=== PATIENT | female | born 1965 | race Caucasian/White ===

== ENCOUNTER → 2019-01-04 | Outpatient (CLI) | payer OTHER ==
[2019-01-04 13:07] LABS: HCT 44.9 % (34.0-46.0); HGB 14.2 gm/dL (11.4-16.0); Hypochromasia Moderate; MCHC 31.5 g/dL (31.0-37.0); MCV 98.2 fL (80.0-100.0); Mean Platelet Volume 6.1; Platelet Count 314 k/uL (150-450); RBC 4.57 m/uL (3.80-5.40); RDW 14.6 % (11.5-15.5); WBC 7.8 k/uL (3.8-10.6)
[2019-01-04 21:00] LABS: Anion Gap 5.8 mmol/L (4.00-12.00); Carbon Dioxide 27.2 mmol/L (21.6-31.8); Potassium 4.4 mmol/L (3.5-5.5)
== END | disposition home or self-care (01) ==
LOC: LABWHC1 12:43
PROVIDERS: ATTEND Internal Medicine Interventional Cardiology
DX: Z01.812 Encounter for preprocedural laboratory examination (principal); I11.0 Hypertensive heart disease with heart failure; I50.22 Chronic systolic (congestive) heart failure
CPT/HCPCS: 36415; 80051; 82565; 84520; 85027

== ENCOUNTER 2019-01-09 11:11 | Day surgery (SDC) | payer OTHER ==
[2019-01-04 11:16] VITALS: BMI 19.5
[~2019-01-09 11:11] MED LIST: ALPRAZolam 0.25 MG TAB PO PRN; ALPRAZolam 0.5 MG TAB PO PRN; ASPIRIN 325 MG TAB PO STA; ATORVASTATIN 80 MG TAB PO STA; NITROGLYCERIN SL TABS 0.4 MG TAB SUBLINGUAL PRN; SODIUM CHLORIDE 0.9% 1,000 ML in EMPTY BAG 1 BAG IV ONE
[2019-01-09 11:33] VITALS: TEMP 98.2
[2019-01-09] MEDS ORDERED: SODIUM CHLORIDE 0.9% 1,000 ML IV ONE (11:35)
[2019-01-09] MEDS ORDERED: LIDOCAINE 1% INJ 10MG/ML (20 ML MDV) ONE (11:51)
[2019-01-09] MEDS ORDERED: fentaNYL (PF) 50 MCG/ML 2 ML AMP ONE (11:51)
[2019-01-09] MEDS ORDERED: VERAPAMIL 2.5 MG/ML 2 ML AMP ONE (11:51)
[2019-01-09] MEDS ORDERED: HEPARIN SODIUM 1,000 UN/ML (10ML VL) ONE (11:52)
[2019-01-09] MEDS ORDERED: MIDAZOLAM 2 MG/2 ML VIAL IV ONE (12:05)
[2019-01-09] MEDS ORDERED: LIDOCAINE 1% INJ 10MG/ML (20 ML MDV) SQ ONE (12:06)
[2019-01-09] MEDS ORDERED: VERAPAMIL SYRINGE (5 MG/10 ML) INTRAARTER ONE (12:09)
[2019-01-09] MEDS ORDERED: HEPARIN SODIUM 1,000 UN/ML (10ML VL) IV ONE (12:10)
[2019-01-09] MEDS ORDERED: IOPAMIDOL-370 100ML BTL INJ ONE (12:17)
[2019-01-09] MEDS ORDERED: RX INFO: IV CONTRAST WAS GIVEN 1 EACH MISC MISCELLANE PRN (12:25)
[2019-01-09] MEDS ORDERED: SODIUM CHLORIDE 0.9% 1,000 ML IV SCH (12:30)
--- NOTE | 2019-01-09 12:53 | CC ---
CARDIAC CATHETERIZATION REPORT DATE OF SERVICE: January 09, 2019 PERFORMING PHYSICIAN: Kevin Saldaña MD, patient accounts clerk. PROCEDURE PERFORMED: 1. Selective right and left coronary angiogram. 2. Left heart catheterization. INDICATION: This is a 53-year-old female patient who was diagnosed recently with severe cardiomyopathy with an ejection fraction of 30%. The heart catheterization is to rule out severe underlying coronary artery disease. APPROACH: Right radial artery. COMPLICATION: None. LEVEL OF SEDATION: Moderate with sedation length of 12 minutes. PROCEDURE DESCRIPTION: After obtaining an informed consent, the patient was brought to the cardiac wharf laborer. The right radial artery was cannulated using micropuncture technique, the micropuncture wire passed easily then I placed a 5-Croatian sheath in the right radial artery. I did after that give the patient 2 mg of verapamil IA and 6000 units of heparin IV. Selective right and left coronary angiogram was performed using JR4 and JL3.5 catheters. Left heart catheterization was performed using the JR4 catheter which flipped into the LV then I did pullback across aortic valve. The procedure was completed without any complication. SELECTIVE CORONARY ANGIOGRAM: 1. The right coronary artery is a large caliber vessel and it is a dominant vessel. The RCA is angiographically normal. Distally it bifurcates into PDA and PLV branches both appeared to be angiographically normal. 2. The left main is angiographically normal. It bifurcates into left circumflex, ramus intermedius, and left anterior descending artery. 3. The left circumflex is a large caliber vessel. It is a nondominant vessel and appeared to be angiographically normal. 4. The ramus intermedius is a large caliber vessel. In the midportion, it bifurcates into 2 branches and they appeared to be angiographically normal. The ramus intermedius overall is angiographically normal. 5. The LAD: The proximal LAD appeared to be angiographically normal. The mid LAD is normal and gives rise into a large diagonal branch which bifurcates into 2 branches they appeared to be angiographically normal and the LAD distally appeared to be angiographically normal and gives rise into second diagonal branch which seems to be normal as well. CONCLUSION: 1. Normal coronary angiogram. 2. Normal left ventricular end-diastolic pressure. POSTPROCEDURE MANAGEMENT: 1. Medical treatment. 2. Follow up with the patient. MMODL / IJN: [id number] /
--- NOTE | 2019-01-09 12:53 | LTR ---
January 09, 2019 Re: Brenda Vázquezy Dear Dr. De La Cruz: Ms. Brenda Rodríguez underwent a heart catheterization today and that revealed normal coronaries. I want to thank you for allowing me to participate in her care and please do not hesitate to call if you have any question or concern. Sincerely, MD BENSON De La Paz / SANTY: [id number] /
[2019-01-09 18:41] VITALS: BP 110/70; PULSE 74; RESP 18
== END 2019-01-09 17:55 | disposition home or self-care (01) ==
LOC: CATHCVL 11:11
PROVIDERS: ATTEND Internal Medicine Interventional Cardiology
DX: I42.9 Cardiomyopathy, unspecified (principal); I10 Essential (primary) hypertension; F17.200 Nicotine dependence, unspecified, uncomplicated; Z79.899 Other long term (current) drug therapy
CPT/HCPCS: 93458; C1769; C1894; J2250; J2001; J1644; Q9967

== ENCOUNTER → 2019-04-24 | Outpatient (CLI) | payer OTHER ==
--- NOTE | 2019-04-24 15:27 | XR ---
EXAMINATION TYPE: XR lumbosacral spine min 4V DATE OF EXAM: 04/24/2019 CLINICAL HISTORY: Chronic low back pain with no known injury TECHNIQUE: Frontal, lateral, and oblique images of the lumbar spine are obtained. COMPARISON: None FINDINGS: There is a rotatory levoscoliosis of the lumbar spine with postsurgical change of L5-S1. T here are 5 lumbar type vertebral bodies identified. Lumbar spine vertebral body heights are maintain ed. There is minimal retrolisthesis of L2 on L3 and L1 on L2. Multilevel degenerative disc disease is seen as intervertebral disc space narrowing, particularly at L2-L3. Small anterior osteophytes and m ultilevel facet arthropathy are also seen. Vertebral body heights and disk space heights are within n ormal limits. The oblique images do not demonstrate visible pars interarticularis defect. No overly ing dilated IMPRESSION: 1. No acute fracture is seen in the lumbar spine. 2. Rotatory levoscoliosis of the lumbar spine. 3. Multilevel malalignment is likely on a degenerative basis with multilevel mild degenerative change s of the lumbar spine.
== END | disposition home or self-care (01) ==
LOC: RADXRMAIN 14:09
PROVIDERS: ATTEND Family Medicine
DX: M51.36 Other intervertebral disc degeneration, lumbar region (principal); M41.86 Other forms of scoliosis, lumbar region
CPT/HCPCS: 72110

== ENCOUNTER 2023-09-15 23:16 | Emergency (ER) | payer OTHER ==
--- NOTE | 2023-09-15 23:32 | ED ---
Abdominal Pain HPI - General Source: patient, EMS Mode of arrival: EMS Limitations: no limitations <Samuel Hale - Last Filed: 09/15/23 23:33> <Vahid Bernstein - Last Filed: 09/16/23 07:21> <Grant Bucio - Last Filed: 09/16/23 09:45> - General Chief Complaint: Abdominal Pain Stated Complaint: RT flank pain Time Seen by Provider: 09/15/23 23:32 - History of Present Illness Initial Comments: 58-year-old female presents to the ED with a chief complaint of flank pain. Patient states for the past day has had pain in her right flank radiating to her lower abdomen. Patient notes associated urinary frequency however denies dysuria or hematuria. (Samuel Hale) Dictation was produced using uchoose dictation software. please excuse any grammatical, word or spelling errors. Chief Complaint: 58-year-old male presents with right-sided flank pain History of Present Illness: Patient's 58-year-old female she initially presented to [facility] emergency department. She had workup performed however due to their CT machine being down she was transferred to our facility for CT imaging. She had normal blood work normal vital signs. Patient states she's been having 24 hours of right-sided back and flank pain. States that her pain is worse when she stands. Denies any blood or changes in her urine appearance. She is pain is constant and does not have a colicky nature. No history of kidney stones. The ROS documented in this emergency department record has been reviewed and confirmed by me. Those systems with pertinent positive or negative responses have been documented in the HPI. All other systems are other negative and/or noncontributory. (Vahid Bernstein) - Related Data Home Medications Medication Instructions Recorded Confirmed Gabapentin [Neurontin] 300 mg PO BID 01/04/19 01/09/19 Metoprolol Tartrate [Lopressor] 25 mg PO BID 01/04/19 01/09/19 Omeprazole [PriLOSEC] 20 mg PO DAILY 01/04/19 01/09/19 Spironolactone [Aldactone] 25 mg PO DAILY 01/04/19 01/09/19 lisinopriL [Zestril] 5 mg PO DAILY 01/04/19 01/09/19 Aspirin 325 mg PO ONCE 01/09/19 01/09/19 Allergies Allergy/AdvReac Type Severity Reaction Status Date / Time No Known Allergies Allergy Verified 09/15/23 23:25 Review of Systems ROS Other: All systems not noted in ROS Statement are negative. <Samuel Hale - Last Filed: 09/15/23 23:33> ROS Other: All systems not noted in ROS Statement are negative. <Vahid Bernstein - Last Filed: 09/16/23 07:21> ROS Other: All systems not noted in ROS Statement are negative. <Grant Bucio - Last Filed: 09/16/23 09:45> ROS Statement: Those systems with pertinent positive or pertinent negative responses have been documented in the HPI. Past Medical History Past Medical History: Asthma, Heart Failure, COPD, Hypertension Additional Past Medical History / Comment(s): Left bundle branch block pattern. Nonischemic cardiomyopathy. Normal cardiac cath, Arthritis History of Any Multi-Drug Resistant Organisms: None Reported Past Surgical History: Back Surgery, Heart Catheterization, Orthopedic Surgery, Tubal Ligation Additional Past Surgical History / Comment(s): right knee surgery x2 and right shoulder surgery. Past Anesthesia/Blood Transfusion Reactions: No Reported Reaction Past Psychological History: Anxiety, Bipolar, Depression Smoking Status: Current every day smoker Past Alcohol Use History: None Reported Past Drug Use History: Cocaine, Marijuana - Past Family History Mother Family Medical History: Cancer, Dementia Additional Family Medical History / Comment(s): Mother at age 70. <Samuel Hale - Last Filed: 09/15/23 23:33> General Exam Limitations: no limitations <Samuel Hale - Last Filed: 09/15/23 23:33> <Vahid Bernstein - Last Filed: 09/16/23 07:21> - General Exam Comments Initial Comments: Visual Physical Exam Vital signs reviewed General: Well-appearing, nontoxic, no acute distress. Head: Normocephalic, atraumatic Eyes: PERRLA, EOMI ENT: Airway patent Chest: Nonlabored breathing Skin: No visual rash, normal skin tone Neuro: Alert and oriented 3 Musculoskeletal: No gross abnormalities (Samuel Hale) PHYSICAL EXAM: General Impression: Alert and oriented x3, mild distress secondary to pain HEENT: Normocephalic atraumatic, extra-ocular movements intact, pupils equal and reactive to light bilaterally, mucous membranes moist. Cardiovascular: Heart regular rate and rhythm Chest: Able to complete full sentences, no retractions, no tachypnea Abdomen: abdomen soft, non-tender, non-distended, no organomegaly Musculoskeletal: Pulses present and equal in all extremities, no peripheral edema Motor: no focal deficits noted Neurological: CN II-XII grossly intact, no focal motor or sensory deficits noted Skin: Intact with no visualized rashes Psych: Normal affect and mood (Vahid Bernstein) Course Vital Signs 09/15/23 09/16/23 09/16/23 23:21 01:50 06:00 Temperature 97.8 F Pulse Rate 86 81 78 Respiratory 18 16 16 Rate Blood Pressure 167/110 163/112 153/97 O2 Sat by Pulse 96 95 95 Oximetry Medical Decision Making <Samuel Hale - Last Filed: 09/15/23 23:33> - Lab Data Result diagrams: 09/15/23 23:44 09/15/23 23:44 <Vahid Bernstein - Last Filed: 09/16/23 07:21> - Lab Data Result diagrams: 09/15/23 23:44 09/15/23 23:44 <Grant Bucio - Last Filed: 09/16/23 09:45> - Medical Decision Making Quicknote portion performed. Signed Samuel Hale PA-C (Samuel Hale) Was pt. sent in by a medical professional or institution (FRAN Patel, ROLLING MACHINE OPERATOR, urgent care, hospital, or long-term...) When possible be specific @ -No Did you speak to anyone other than the patient for history (EMS, parent, family, police, friend...)? What history was obtained from this source @ -No Did you review nursing and triage notes (agree or disagree)? Why? @ -I reviewed and agree with nursing and triage notes Were old charts reviewed (outside hosp., previous admission, EMS record, old EKG, old radiological studies, urgent care reports/EKG's, long-term records)? Report findings @ -No old charts were reviewed Differential Diagnosis (chest pain, altered mental status, abdominal pain women, abdominal pain men, vaginal bleeding, musculoskeletal, weakness, fever, dyspnea, syncope, headache, dizziness, GI bleed, back pain, seizure, CVA, palpatations, mental health)? @ -Differential Abdominal Pain Women: Appendicitis, Cholecystitis, diverticulosis, ischemic bowel, pancreatitis, hepatitis, UTI, gastroenteritis, AAA, incarcerated hernia, bowel obstruction, constipation, inflammatory bowel, hepatitis, peptic ulcer disease, splenic infarction, perforated viscus, vulvitis, ovarian torsion, PID, kidney stone, placenta abruption, this is not meant to be an all-inclusive list EKG interpreted by me (3pts min.). @ -None done X-rays interpreted by me (1pt min.). @ -None done CT interpreted by me (1pt min.). @ - U/S interpreted by me (1pt. min.). @ -None done What testing was considered but not performed or refused? (CT, X-rays, U/S, labs)? Why? @ -None What meds were considered but not given or refused? Why? @ -None Did you discuss the management of the patient with other professionals (professionals i.e. , PA, ROLLING MACHINE OPERATOR, lab, RT, psych nurse, nephrology social worker, boat and plant utility supervisor, teacher, district resource officer, registered nurse hh case manager)? Give summary @ -No Was smoking cessation discussed for >3mins.? @ -No Was critical care preformed (if so, how long)? @ -No Were there social determinants of health that impacted care today? How? (Homelessness, low income, unemployed, alcoholism, drug addiction, transportation, low edu. Level, literacy, decrease access to med. care, usp, rehab)? @ -No Was there de-escalation of care discussed even if they declined (Discuss DNR or withdrawal of care, Hospice)? DNR status @ -No What co-morbidities impacted this encounter? (DM, HTN, Smoking, COPD, CAD, Ca ncer, CVA, ARF, Chemo, Hep., AIDS, mental health diagnosis, sleep apnea, morbid obesity)? @ -None Was patient admitted / discharged? Hospital course, mention meds given and route, prescriptions, significant lab abnormalities, going to OR and other pertinent info. @ -58-year-old female presents emergency by with right flank pain and abdominal pain. Vital signs upon arrival are within acceptable limits. Labs unremarkable. Pending CT. Patient Signed out to Dr. Bucio for follow-up of pending CT imaging. Undiagnosed new problem with uncertain prognosis? @ -No Drug Therapy requiring intensive monitoring for toxicity (Heparin, Nitro, Insulin, Cardizem)? @ -No Were any procedures done? @ -No Diagnosis/symptom? Acute, or Chronic, or Acute on Chronic? Uncomplicated (without systemic symptoms) or Complicated (systemic symptoms)? @ -Right-sided flank pain (Vahid Bernstein) Patient was signed out to me pending results of CT imaging. CT abdomen and pelvis as interpreted by myself was negative for any obvious process. Briefly, patient is transferred here for CT imaging of the abdomen over concern for right flank pain and abdominal pain of unknown etiology. Patient's labs are unremarkable. Was awaiting CT results. When I went to go update the patient, she was unable to be found. Patient left AGAINST MEDICAL ADVICE. We attempt to contact the patient multiple times and family but were unsuccessful. We believe she may have left with an IV in her arm. We'll continue to try to contact the patient. I never evaluated the patient and she had eloped prior to me seeing her. If necessary, we will contact police to ensure IV is removed. After voicemail left stating that police will need to come evaluate for the well-being of the patient has wheezes have not heard from her, the patient did return our phone call. States that she removed the IV upon leaving the hospital. She states her pain is improved and discussed sick of waiting for the results. She spoke with our charge nurse, Obie who informed her of the CAT scan results. She expressed understanding. Diagnosis/symptom? @ -Abdominal pain of unknown etiology, left AMA/left without completing treatment Acute, or Chronic, or Acute on Chronic? @ -Acute Uncomplicated (without systemic symptoms) or Complicated (systemic symptoms)? @ -Uncomplicated Side effects of treatment? @ -none Exacerbation, Progression, or Severe Exacerbation] @ -no Poses a threat to life or bodily function? @ -Unlikely. (Grant Bucio) - Lab Data Lab Results 09/15/23 09/15/23 09/15/23 Range/Units 23:44 23:44 23:44 WBC 8.0 (3.8-10.6) k/uL RBC 4.12 (3.80-5.40) m/uL Hgb 12.9 (11.4-16.0) gm/dL Hct 38.3 (34.0-46.0) % MCV 92.8 (80.0-100.0) fL MCH 31.2 (25.0-35.0) pg MCHC 33.6 (31.0-37.0) g/dL RDW 15.1 (11.5-15.5) % Plt Count 268 (150-450) k/uL MPV 6.7 Neutrophils % 54 % Lymphocytes % 36 % Monocytes % 6 % Eosinophils % 2 % Basophils % 1 % Neutrophils # 4.3 (1.3-7.7) k/uL Lymphocytes # 2.9 (1.0-4.8) k/uL Monocytes # 0.5 (0-1.0) k/uL Eosinophils # 0.1 (0-0.7) k/uL Basophils # 0.1 (0-0.2) k/uL Sodium 139 (137-145) mmol/L Potassium 4.2 (3.5-5.1) mmol/L Chloride 106 (98-107) mmol/L Carbon Dioxide 24 (22-30) mmol/L Anion Gap 9 mmol/L BUN 12 (7-17) mg/dL Creatinine 0.71 (0.52-1.04) mg/dL Est GFR (CKD-EPI)AfAm >90 (>60 ml/min/1.73 sqM) Est GFR (CKD-EPI)NonAf >90 (>60 ml/min/1.73 sqM) Glucose 100 H (74-99) mg/dL Calcium 9.2 (8.4-10.2) mg/dL Total Bilirubin 0.3 (0.2-1.3) mg/dL AST 53 H (14-36) U/L ALT 27 (4-34) U/L Alkaline Phosphatase 90 (38-126) U/L Total Protein 7.0 (6.3-8.2) g/dL Albumin 3.8 (3.5-5.0) g/dL Amylase 75 (30-110) U/L Lipase 91 (23-300) U/L Urine Color Yellow Urine Appearance Cloudy H (Clear) Urine pH 5.5 (5.0-8.0) Ur Specific [place] 1.027 (1.001-1.035) Urine Protein Trace H (Negative) Urine Glucose (UA) Negative (Negative) Urine Ketones Negative (Negative) Urine Blood Negative (Negative) Urine Nitrite Negative (Negative) Urine Bilirubin Negative (Negative) Urine Urobilinogen 2.0 (<2.0) mg/dL Ur Leukocyte Esterase Small H (Negative) Urine RBC 1 (0-5) /hpf Urine WBC 1 (0-5) /hpf Ur Squamous Epith Cells 17 H (0-4) /hpf Hyaline Casts 43 H (0-2) /lpf Urine Mucus Few H (None) /hpf Disposition <Samuel Hale - Last Filed: 09/15/23 23:33> <Vahid Bernstein - Last Filed: 09/16/23 07:21> Time of Disposition: 08:00 <Grant Bucio - Last Filed: 09/16/23 09:45> Clinical Impression: Abdominal pain of unknown etiology Disposition: LEFT AGAINST MEDICAL ADVICE Condition: Undetermined Referrals: None,Stated [Primary Care Provider] - 1-2 days
[2023-09-15 23:35] VITALS: TEMP 97.8
[2023-09-15] MEDS ORDERED: SODIUM CHLORIDE 0.9% 1,000 ML IV STA (23:41)
[2023-09-15 23:57] LABS: Basophils # (A) 0.1 k/uL (0-0.2); Basophils % (A) 1 %; Eosinophils # (A) 0.1 k/uL (0-0.7); Eosinophils % (A) 2 %; HCT 38.3 % (34.0-46.0); HGB 12.9 gm/dL (11.4-16.0); Lymphocytes # (A) 2.9 k/uL (1.0-4.8); Lymphocytes % (A) 36 %; MCH 31.2 pg (25.0-35.0); MCHC 33.6 g/dL (31.0-37.0); MCV 92.8 fL (80.0-100.0); Mean Platelet Volume 6.7; Monocytes # (A) 0.5 k/uL (0-1.0); Monocytes % (A) 6 %; Neutrophils # (A) 4.3 k/uL (1.3-7.7); Neutrophils % (A) 54 %; Platelet Count 268 k/uL (150-450); RBC 4.12 m/uL (3.80-5.40); RDW 15.1 % (11.5-15.5)
[2023-09-16 00:18] LABS: ALT 27 U/L (4-34); AST 53 U/L (14-36); African American GFR (CKD) >90 (>60 ml/min/1.73 sqM); Albumin 3.8 g/dL (3.5-5.0); Alkaline Phosphatase 90 U/L (38-126); Amylase 75 U/L (30-110); Anion Gap 9 mmol/L; Blood Urea Nitrogen 12 mg/dL (7-17); Calcium 9.2 mg/dL (8.4-10.2); Carbon Dioxide 24 mmol/L (22-30); Chloride 106 mmol/L (98-107); Glucose 100 mg/dL (74-99); Lipase 91 U/L (23-300); Non-African American GFR(CKD) >90 (>60 ml/min/1.73 sqM); Potassium 4.2 mmol/L (3.5-5.1); Sodium 139 mmol/L (137-145); Total Bilirubin 0.3 mg/dL (0.2-1.3)
[2023-09-16 00:39] LABS: Appearance,Urine Cloudy (Clear); Bilirubin,Urine Negative (Negative); Blood,Urine Negative (Negative); Color,Urine Yellow; Glucose,Urine (UA) Negative (Negative); Hyaline Casts,Urine 43 /lpf (0-2); Ketones,Urine Negative (Negative); Leukocyte Esterase,Urine Small (Negative); Mucus,Urine Few /hpf; Nitrite,Urine Negative (Negative); PH, Urine 5.5 (5.0-8.0); Protein,Urine Trace (Negative); RBC,Urine 1 /hpf (0-5); Specific Gravity,Urine 1.027 (1.001-1.035); Squamous Epithelial Cell,Urine 17 /hpf (0-4); WBC,Urine 1 /hpf (0-5)
[2023-09-16] MEDS ORDERED: MORPHINE SULFATE 4 MG/ML SYRINGE IV STA (01:54)
[2023-09-16 01:59] VITALS: RESP 16
[2023-09-16 06:44] VITALS: BP 153/97; PULSE 78
--- NOTE | 2023-09-16 07:40 | CT ---
EXAMINATION TYPE: CT abdomen pelvis wo con DATE OF EXAM: 09/16/2023 COMPARISON: 04/22/2014 HISTORY: 58-year-old female right flank pain, rule out stone CT DLP: 444.4 mGycm. Automated exposure control for dose reduction was used. TECHNIQUE: Contiguous axial scanning of the abdomen and pelvis without IV contrast. Coronal and sagit rosetta reconstructions performed. FINDINGS: Heart normal size without pericardial effusion. Lung bases clear without pleural effusion. Noncontrast appearance of the liver, gallbladder, adrenal glands, spleen, and pancreas within normal limits. Bilateral nonobstructive renal calculi. Numerous stones are present on either side measuring up to 6 mm. No hydronephrosis is seen. No dilated small bowel, free fluid, or free air. No mesenteric or retroperitoneal lymphadenopathy. Appendix not clearly identified. No secondary findings of acute appendicitis in the right lower quadr ant. Mild sigmoid diverticulosis. No pericolonic inflammatory change. Bladder is collapsed. Uterus anteverted. Numerous pelvic phleboliths. No abnormal fluid collection in the pelvis or pelvic lymphadenopathy. Bones: Status post L5-S1 posterior fusion. Hypertrophic facet arthropathy lower lumbar spine. Degener ated levoconvex scoliosis lumbar spine. Moderate to advanced degenerative disc disease throughout. IMPRESSION: 1. Numerous bilateral nonobstructive renal calculi on either side measuring up to 6 mm. No ureteral stone or obstructive uropathy identified. 2. Mild sigmoid diverticulosis. No acute inflammation identified.
== END 2023-09-16 08:00 | disposition left against medical advice (07) ==
LOC: EC 23:16
DX: K57.30 Diverticulosis of large intestine without perforation or abscess without bleeding (principal); N20.0 Calculus of kidney; I11.0 Hypertensive heart disease with heart failure; I50.9 Heart failure, unspecified; M19.90 Unspecified osteoarthritis, unspecified site; J44.89 Other specified chronic obstructive pulmonary disease; F41.9 Anxiety disorder, unspecified; F31.9 Bipolar disorder, unspecified; F12.90 Cannabis use, unspecified, uncomplicated; F17.200 Nicotine dependence, unspecified, uncomplicated; Z79.82 Long term (current) use of aspirin; Z79.899 Other long term (current) drug therapy; Z53.29 Procedure and treatment not carried out because of patient's decision for other reasons
CPT/HCPCS: 99285; 96374; 96361; 36415; 80053; 82150; 83690; 85025; 81001; 74176; J2270

== ENCOUNTER 2024-05-07 23:44 | Inpatient (IN) | payer MEDICAID, OTHER ==
[~2024-05-07 23:44] MED LIST changes: -ALPRAZolam 0.25 MG TAB PO PRN; -ALPRAZolam 0.5 MG TAB PO PRN; -ASPIRIN 325 MG TAB PO STA; -ATORVASTATIN 80 MG TAB PO STA; +LORazepam 0.5 MG TAB ONE; -NITROGLYCERIN SL TABS 0.4 MG TAB SUBLINGUAL PRN; -SODIUM CHLORIDE 0.9% 1,000 ML in EMPTY BAG 1 BAG IV ONE
[2024-05-09] MEDS ORDERED: FLUoxetine HCL 10 MG CAP ONE (12:03)
[2024-05-09] MEDS ORDERED: MELOXICAM 7.5 MG TAB ONE (14:58)
[2024-05-09] MEDS ORDERED: PANTOPRAZOLE 40 MG TABLET PO ONE (14:58)
[2024-05-09] MEDS ORDERED: lisinopriL 10 MG TAB ONE (14:59)
[2024-05-09] MEDS ORDERED: SPIRONOLACTONE 25 MG TAB ONE (23:59)
[2024-05-09] MEDS ORDERED: METOPROLOL SUCCINATE (ER) 100 MG TAB.ER.24H PO ONE (23:59)
[2024-05-10] MEDS ORDERED: MELOXICAM 7.5 MG TAB ONE (07:48)
[2024-05-10] MEDS ORDERED: metFORMIN 500 MG TAB ONE ×2 (07:48→17:46)
[2024-05-10] MEDS ORDERED: PANTOPRAZOLE 40 MG TABLET PO ONE (07:48)
[2024-05-10] MEDS ORDERED: FLUoxetine HCL 10 MG CAP ONE (07:48)
[2024-05-10] MEDS ORDERED: lisinopriL 10 MG TAB ONE (07:49)
[2024-05-10] MEDS ORDERED: MAGNESIUM HYDROXIDE 2,400 MG/30 ML CUP ONE (08:48)
[2024-05-10] MEDS ORDERED: METOPROLOL SUCCINATE (ER) 100 MG TAB.ER.24H PO ONE (23:59)
[2024-05-10] MEDS ORDERED: SPIRONOLACTONE 25 MG TAB ONE (23:59)
[2024-05-11] MEDS ORDERED: metFORMIN 500 MG TAB ONE (08:03)
[2024-05-11] MEDS ORDERED: MELOXICAM 7.5 MG TAB ONE (08:04)
[2024-05-11] MEDS ORDERED: FLUoxetine HCL 10 MG CAP ONE (08:04)
[2024-05-11] MEDS ORDERED: lisinopriL 10 MG TAB ONE (08:04)
[2024-05-11] MEDS ORDERED: METOPROLOL SUCCINATE (ER) 100 MG TAB.ER.24H PO ONE (13:00)
[2024-05-11] MEDS ORDERED: SPIRONOLACTONE 25 MG TAB ONE (13:00)
== END 2024-05-11 17:05 | disposition home or self-care (01) | DRG 751 ==
LOC: UNDOADMIN 23:44 → 3MHU 23:44 → 3NCARDOBS 23:44 → UNDODISIN 05-11 17:05
PROVIDERS: ADMIT Psychiatry & Neurology Psychiatry; ATTEND Psychiatry & Neurology Psychiatry
DX: F33.2 Major depressive disorder, recurrent severe without psychotic features (principal); R45.851 Suicidal ideations; J44.9 Chronic obstructive pulmonary disease, unspecified; Z11.52 Encounter for screening for COVID-19; I44.7 Left bundle-branch block, unspecified; E11.9 Type 2 diabetes mellitus without complications; I42.9 Cardiomyopathy, unspecified; Z79.82 Long term (current) use of aspirin; Z79.899 Other long term (current) drug therapy
CPT/HCPCS: 93005; 99285